=== PATIENT | female | born 1990 | race Hispanic/Latino ===

== ENCOUNTER 2017-05-29 17:01 | Emergency (ER) | payer MEDICAID ==
[2017-05-29 17:24] VITALS: BP 109/58; PULSE 48; RESP 20; TEMP 98.6; O2SAT 99
--- NOTE | 2017-05-29 19:12 | ED PDOC ---
HPI: Abdomen Time Seen by Provider: 05/29/17 18:03 Chief Complaint (Nursing): Abdominal Pain Chief Complaint (Provider): Lower back pain, lower abdominal pain History Per: Patient History/Exam Limitations: no limitations Onset/Duration Of Symptoms: Days Outside of [place] travel?: No Current Symptoms Are (Timing): Still Present Location Of Pain/Discomfort: RLQ, LLQ, Suprapubic Associated Symptoms: Back Pain Additional Complaint(s): The patient is a 26yo female, past medical history of rheumatoid arthritis, lupus, presents to the ED for evaluation of lower abdominal pain, radiating to her lower back and is associated with pressure like cramping pain. Patient reports her LMP ended 8 days ago and was a normal cycle; she states the cramping pain from her period has not ended yet. Patient also reports some nausea, light headedness, generalized fatigue, and constipation which is chronics. Patient denies any vaginal bleeding, dysuria, hematuria, frequency, black or bloody stools. Patient also denies any other medical complaints. Past Medical History Reviewed: Historical Data, Nursing Documentation, Vital Signs Vital Signs: Last Vital Signs Temp 98.6 F 05/29/17 17:21 Pulse 48 L 05/29/17 17:21 Resp 20 05/29/17 17:21 BP 109/58 L 05/29/17 17:21 Pulse Ox 99 05/29/17 19:30 - Medical History PMH: No Chronic Diseases - Surgical History Surgical History: No Surg Hx - Family History Family History: States: No Known Family Hx - Social History Current smoker - smoking cessation education provided: Yes Alcohol: None Drugs: Denies - Home Medications Home Medications: Ambulatory Orders Medication Instructions Recorded Naproxen [Naprosyn] 1 tab PO BID PRN #60 tab 05/29/17 - Allergies Allergies/Adverse Reactions: Allergies Allergy/AdvReac Type Severity Reaction Status Date / Time No Known Allergies Allergy Verified 03/02/16 18:02 Review of Systems ROS Statement: Except As Marked, All Systems Reviewed And Found Negative Gastrointestinal: Positive for: Abdominal Pain, Constipation. Negative for: Melena, Hematochezia Genitourinary Female: Negative for: Dysuria, Frequency, Hematuria, Vaginal Bleeding Physical Exam - Reviewed Nursing Documentation Reviewed: Yes Vital Signs Reviewed: Yes - Physical Exam Appears: Positive for: Well, Non-toxic, No Acute Distress Head Exam: Positive for: ATRAUMATIC, NORMAL INSPECTION, NORMOCEPHALIC Skin: Positive for: Normal Color, Warm, DRY Eye Exam: Positive for: Normal appearance Neck: Positive for: Normal, Supple Cardiovascular/Chest: Positive for: Regular Rate, Rhythm Respiratory: Positive for: Normal Breath Sounds. Negative for: Respiratory Distress Gastrointestinal/Abdominal: Positive for: Normal Exam, Soft. Negative for: Tenderness Back: Positive for: Normal Inspection. Negative for: L CVA Tenderness, R CVA Tenderness Extremity: Positive for: Normal ROM. Negative for: Deformity, Swelling Neurologic/Psych: Positive for: Alert, Oriented. Negative for: Motor/Sensory Deficits - Laboratory Results Result Diagrams: 05/29/17 19:11 05/29/17 19:11 - ECG O2 Sat by Pulse Oximetry: 99 (RA) Pulse Ox Interpretation: Normal Medical Decision Making Medical Decision Making: Time: 1809 Impression: Pelvic pain Differential: UTI, fibroids, ovarian cyst, , constipation Plan: -- Labs -- Toradol 15mg IV -- Zofran 4mg IVP -- US Transvaginal Reassess EXAM: US Pelvis, Transvaginal EXAM DATE/TIME: 05/29/2017 6:59 PM CLINICAL HISTORY: 26 years old, female; Pain; Pelvic pain; Additional info: Pelvic pain R/O ov cyst/torsion TECHNIQUE: Real-time transvaginal pelvic ultrasound (complete) with image documentation. Transvaginal imaging was used for better evaluation of the endometrium and adnexa. COMPARISON: Prior pelvic CT of 01/29/2016 FINDINGS: Uterus: Measures 9.5 x 4.1 x 5.3 cm. Endometrial stripe does not appear abnormally thickened, measuring 8.5 mm. No fibroids seen. Cervix appears closed. Right ovary: Measures 4.0 x 2.1 x 3.5 cm, and contains a 2.3 x 2.0 cm cystic lesion, which appears grossly simple in nature. No followup is warranted based on the imaging findings , unless otherwise clinically indicated. Flow seen in the right ovary on Doppler imaging, with no evidence of torsion. Left ovary: Within normal limits in appearance. Measures 2.5 x 2.5 x 1.5 cm. Flow seen in the left ovary on color and Doppler imaging, with no evidence of torsion. Cul-de-sac: No free fluid. IMPRESSION: No evidence of ovarian torsion or other significant acute abnormality. Small 2.3 cm cystic lesion in the right ovary. See above for remaining findings. Thank you for allowing us to participate in the care of your patient Dictated and Authenticated by: Ching Helton MD 05/29/2017 9:25 PM Eastern Time ([place] & [place]) Scribe Attestation: Documented by Vera Valiente acting as a scribe for Irais Vasquez MD. Provider Attestation: All medical record entries made by the Scribe were at my direction and personally dictated by me. I have reviewed the chart and agree that the record accurately reflects my personal performance of the history, physical exam, medical decision making, and the department course for this patient. I have also personally directed, reviewed, and agree with the discharge instructions and disposition. Disposition - Clinical Impression Clinical Impression: Pelvic pain Counseled Patient/Family Regarding: Studies Performed, Diagnosis, Need For Followup - Disposition Referrals: [facility] [Outside] () Disposition: Routine/Home Disposition Time: 21:00 Condition: STABLE Prescriptions: Naproxen [Naprosyn] 1 tab PO BID PRN #60 tab PRN Reason: Pain Forms: [employer] ([place])
[2017-05-29 19:16] LABS: BASO # 0.1 K/uL (0.0-0.2); BASO % 1.1 % (0.0-2.0); EOS # 0.2 K/uL (0.0-0.7); EOS % 2.2 % (0.0-4.0); HEMATOCRIT 41.5 % (34.0-47.0); LYMPH # 2.8 K/uL (1.0-4.3); LYMPH % 38.3 % (20.0-40.0); MEAN CELL VOLUME 80.7 fl (81.0-99.0); MEAN CORPUSCULAR HGB CONC 32.2 g/dL (33.0-37.0); MEAN PLATELET VOLUME 8.1 fl (7.2-11.7); MONO # 0.6 K/uL (0.0-0.8); MONO % 8.9 % (0.0-10.0); NEUT # 3.6 K/uL (1.8-7.0); NEUT % 49.5 % (50.0-75.0); RED CELL DISTRIBUTION WIDTH 14.1 % (11.5-14.5); WHITE BLOOD COUNT 7.2 K/uL (4.8-10.8)
[2017-05-29 19:44] LABS: ALB/GLOB RATIO 1.5 (1.0-2.1); ALKALINE PHOSPHATASE 44 U/L (38-126); ALT/SGPT 35 U/L (9-52); AST/SGOT 22 U/L (14-36); BILIRUBIN,TOTAL 0.9 mg/dl (0.2-1.3); BLOOD UREA NITROGEN 15 mg/dl (7-17); CARBON DIOXIDE 24 mmol/L (22-30); CHLORIDE 104 mmol/L (98-107); GFR AFRICAN-AMERICAN > 60; GLUCOSE,RANDOM 89 mg/dL (65-105); POTASSIUM 4.3 MMOL/L (3.6-5.0); SODIUM 138 mmol/l (132-148); TOTAL PROTEIN 7.9 G/DL (6.3-8.2)
--- NOTE | 2017-05-29 21:25 | US ---
EXAM: US Pelvis, Transvaginal EXAM DATE/TIME: 05/29/2017 6:59 PM CLINICAL HISTORY: 26 years old, female; Pain; Pelvic pain; Additional info: Pelvic pain R/O ov cyst/torsion TECHNIQUE: Real-time transvaginal pelvic ultrasound (complete) with image documentation. Transvaginal imaging was used for better evaluation of the endometrium and adnexa. COMPARISON: Prior pelvic CT of 01/29/2016 FINDINGS: Uterus: Measures 9.5 x 4.1 x 5.3 cm. Endometrial stripe does not appear abnormally thickened, measuring 8.5 mm. No fibroids seen. Cervix appears closed. Right ovary: Measures 4.0 x 2.1 x 3.5 cm, and contains a 2.3 x 2.0 cm cystic lesion, which appears grossly simple in nature. No followup is warranted based on the imaging findings, unless otherwise clinically indicated. Flow seen in the right ovary on Doppler imaging, with no evidence of torsion. Left ovary: Within normal limits in appearance. Measures 2.5 x 2.5 x 1.5 cm. Flow seen in the left ovary on color and Doppler imaging, with no evidence of torsion. Cul-de-sac: No free fluid. IMPRESSION: No evidence of ovarian torsion or other significant acute abnormality. Small 2.3 cm cystic lesion in the right ovary. See above for remaining findings.
== END 2017-05-29 22:22 | disposition home or self-care (01) ==
LOC: H.ER 17:01
DX: N83.291 Other ovarian cyst, right side (principal)
CPT/HCPCS: 76830; 80053; 81025; 85025; 96374; 96375; 99282; J1885; J2405

== ENCOUNTER 2017-09-11 11:10 | Emergency (ER) | payer MEDICAID ==
[2017-09-11 11:26] VITALS: RESP 18; TEMP 98
--- NOTE | 2017-09-11 13:14 | ED PDOC ---
HPI: Chest Pain Time Seen by Provider: 09/11/17 11:58 Chief Complaint (Nursing): Anxiety Chief Complaint (Provider): Chest pain & anxiety History Per: Patient History/Exam Limitations: no limitations Onset/Duration Of Symptoms: Days (x1), Intermittent Episodes Current Symptoms Are (Timing): Still Present Context: Other (stress) Pain Scale Rating Of: 5 Associated Symptoms: Other (anxiety, shortness of breath). denies: Nausea Additional Complaint(s): Kassie Schmitt is a 27 year old female, with a past medical history of lupus , who present to the emergency department complaining of anxiety, chest pain, and shortness of breath onset x1 day. Patient also reports loss of appetite and not sleeping well. Patient reports similar symptoms when she is anxious. Patient report feeling stressed after she was accused to DYFS. She denies any vomit, diarrhea, nausea, suicidal or homicidal ideation. No further medical complaints. PMD: None provided. Past Medical History Reviewed: Historical Data, Nursing Documentation, Vital Signs Vital Signs: Last Vital Signs Temp 98 F 09/11/17 17:02 Pulse 76 09/11/17 17:02 Resp 18 09/11/17 11:23 BP 120/70 09/11/17 17:02 Pulse Ox 98 09/11/17 17:02 - Medical History PMH: No Chronic Diseases - Surgical History Surgical History: No Surg Hx - Family History Family History: States: Unknown Family Hx - Social History Current smoker - smoking cessation education provided: No Alcohol: None Drugs: Cannabis - Home Medications Home Medications: Ambulatory Orders Medication Instructions Recorded Naproxen [Naprosyn] 1 tab PO BID PRN #60 tab 05/29/17 - Allergies Allergies/Adverse Reactions: Allergies Allergy/AdvReac Type Severity Reaction Status Date / Time No Known Allergies Allergy Verified 09/11/17 11:23 CHRISTIAN Risk Score for UA/NSTEMI - CHRISTIAN Risk Score Age > 64: NO 3 or more CAD Risk Factors: NO Known CAD (Stenosis greater than 50%): NO Aspirin use in past 7 days: NO Severe Angina: NO EKG ST changes greater than 0.5mm: NO Positive Cardiac Marker: NO CHRISTIAN Score: 0 Risk %: 5% Wells Criteria for PE - Wells Criteria for Pulmonary Embolism Clinical Signs and Symptoms of DVT: No P.E is #1 Diagnosis, or Equally Likely: No Heart Rate >100: No Immobilization at least 3 days;Surgery previous 4 weeks: No Previous, objectively diagnosed PE or DVT: No Hemoptysis: No Malignancy w/treatment within 6 months, or palliative: No Total Score: 0 Review of Systems ROS Statement: Except As Marked, All Systems Reviewed And Found Negative Cardiovascular: Positive for: Chest Pain Respiratory: Positive for: Shortness of Breath Gastrointestinal: Negative for: Nausea, Vomiting, Diarrhea Psych: Positive for: Anxiety. Negative for: Suicidal ideation (or homicidal ) Physical Exam - Reviewed Nursing Documentation Reviewed: Yes Vital Signs Reviewed: Yes - Physical Exam Appears: Positive for: Non-toxic Head Exam: Positive for: ATRAUMATIC, NORMAL INSPECTION Skin: Positive for: Normal Color, Warm, Dry Eye Exam: Positive for: Normal appearance, EOMI Neck: Positive for: Painless ROM, Supple Cardiovascular/Chest: Positive for: Regular Rate, Rhythm. Negative for: Murmur Respiratory: Positive for: Normal Breath Sounds. Negative for: Respiratory Distress Gastrointestinal/Abdominal: Positive for: Soft. Negative for: Tenderness, Guarding, Rebound Back: Negative for: L CVA Tenderness, R CVA Tenderness Extremity: Positive for: Normal ROM. Negative for: Deformity, Swelling Neurologic/Psych: Positive for: Alert, Oriented - Laboratory Results Result Diagrams: 09/11/17 12:53 09/11/17 12:53 - ECG O2 Sat by Pulse Oximetry: 99 (RA) Pulse Ox Interpretation: Normal Medical Decision Making Medical Decision Making: Initial impression: Chest pain, anxiety. Differential includes: anxiety, panic attack. Rule out: ACS Initial Plan: --EKG --Basic Metabolic Panel --Drug screen, urine --Troponin I --Crisis evaluation --Urine --CBC w/ differential --reevaluation 1650 Cleared by crisis for discharge. Scribe Attestation: Documented by José Miguel Kearney, acting as a scribe for Luciano Juan MD Provider Scribe Attestation: All medical record entries made by the Scribe were at my direction and personally dictated by me. I have reviewed the chart and agree that the record accurately reflects my personal performance of the history, physical exam, medical decision making, and the department course for this patient. I have also personally directed, reviewed, and agree with the discharge instructions and disposition. Disposition - Clinical Impression Clinical Impression: Anxiety, Chest pain - Patient ED Disposition Is Patient to be Admitted: No Doctor Will See Patient In The: Office Counseled Patient/Family Regarding: Studies Performed, Diagnosis - Disposition Referrals: [facility] [Outside] Disposition Time: 17:00 Condition: GOOD Additional Instructions: Follow up with your PCP in 2-3 days. Instructions: Chest Pain (ED), Anxiety (ED)
[2017-09-11 13:23] LABS: BASO % 0.9 % (0.0-2.0); EOS # 0.1 K/uL (0.0-0.7); EOS % 1.6 % (0.0-4.0); HEMATOCRIT 39.3 % (34.0-47.0); LYMPH # 1.7 K/uL (1.0-4.3); LYMPH % 33.9 % (20.0-40.0); MEAN CELL VOLUME 81.6 fl (81.0-99.0); MEAN CORPUSCULAR HEMOGLOBIN 26.7 pg (27.0-31.0); MEAN CORPUSCULAR HGB CONC 32.8 g/dL (33.0-37.0); MEAN PLATELET VOLUME 8.5 fl (7.2-11.7); MONO # 0.5 K/uL (0.0-0.8); MONO % 11.1 % (0.0-10.0); NEUT # 2.6 K/uL (1.8-7.0); NEUT % 52.5 % (50.0-75.0); NRBC % 0.3 % (0.0-0.0); RED CELL DISTRIBUTION WIDTH 13.4 % (11.5-14.5); WHITE BLOOD COUNT 4.9 K/uL (4.8-10.8)
[2017-09-11 13:26] LABS: BLOOD UREA NITROGEN 11 mg/dl (7-17); CALCIUM 9.6 mg/dL (8.4-10.2); CARBON DIOXIDE 27 mmol/L (22-30); CHLORIDE 106 mmol/L (98-107); GFR AFRICAN-AMERICAN > 60; GLUCOSE,RANDOM 82 mg/dL (65-105); POTASSIUM 4.4 MMOL/L (3.6-5.0); SODIUM 141 mmol/l (132-148)
[2017-09-11 17:03] VITALS: BP 120/70; PULSE 76
--- NOTE | 2017-09-12 00:12 | CARD ---
APPROVED REPORT EKG Measurement Heart [id number] <Conclusion> Sinus bradycardia with sinus arrhythmia Otherwise normal ECG
[2017-09-14 10:14] VITALS: O2SAT 99
== END 2017-09-11 17:05 | disposition home or self-care (01) ==
LOC: H.ER 11:10
DX: F41.9 Anxiety disorder, unspecified (principal)

== ENCOUNTER 2017-10-28 10:26 | Emergency (ER) | payer MEDICAID ==
[2017-10-28 10:59] VITALS: BMI 30.7
[2017-10-28 13:15] LABS: SQUAMOUS EPITHIAL 2 /hpf (0-5); URINE BACTERIA RARE (<OCC); URINE BILIRUBIN NEGATIVE (NEGATIVE); URINE BLOOD NEGATIVE (NEGATIVE); URINE CLARITY SLIGHTY-CLOUDY (Clear); URINE COLOR YELLOW (YELLOW); URINE GLUCOSE (UA) NEG (Normal); URINE LEUKOCYTE ESTERASE SMALL Leu/uL (Negative); URINE NITRATE NEGATIVE (NEGATIVE); URINE PROTEIN NEGATIVE (NEGATIVE)
--- NOTE | 2017-10-28 13:33 | ED PDOC ---
HPI: Female Pain Time Seen by Provider: 10/28/17 10:43 Chief Complaint (Nursing): Female Genitourinary Chief Complaint (Provider): URI/Vaginitis History Per: Patient Additional Complaint(s): 27 yo female, PMH of RA and Lupus, presents to ED with complaint sof cough and congestion x 3 days. Additionally, for 2 weeks pt notes foul smelling vaginal discharge. Pt reports no concern for STD's. Past Medical History Reviewed: Nursing Documentation, Vital Signs - Medical History PMH: No Chronic Diseases Denies: Diabetes, Hepatitis, HIV, HTN, Seizures, Sexually Transmitted Disease - Surgical History Surgical History: No Surg Hx - Family History Family History: States: Unknown Family Hx - Living Arrangements Living Arrangements: With Family - Social History Current smoker - smoking cessation education provided: No Alcohol: Social Drugs: Denies - Home Medications Home Medications: Ambulatory Orders Medication Instructions Recorded Naproxen [Naprosyn] 1 tab PO BID PRN #60 tab 05/29/17 Guaifenesin/Pseudoephedrne HCl 1 tab PO DAILY PRN #30 ter 10/28/17 [Mucinex D 600 mg-60 mg] Metronidazole [Metrogel-Vaginal] 1 ea VG HS #5 gel 10/28/17 Promethazine HCl/Codeine 5 ml PO HS #80 ml 10/28/17 [Prometh-Codein 6.25-10 mg/5 ml] - Allergies Allergies/Adverse Reactions: Allergies Allergy/AdvReac Type Severity Reaction Status Date / Time No Known Allergies Allergy Verified 09/11/17 11:23 Review of Systems ROS Statement: Except As Marked, All Systems Reviewed And Found Negative ENT: Positive for: Nose Congestion Respiratory: Positive for: Cough Genitourinary Female: Positive for: Vaginal Discharge Physical Exam - Reviewed Nursing Documentation Reviewed: Yes Vital Signs Reviewed: Yes - Physical Exam Appears: Positive for: Well, Non-toxic, No Acute Distress Head Exam: Positive for: ATRAUMATIC, NORMAL INSPECTION, NORMOCEPHALIC Skin: Positive for: Normal Color, Warm, DRY Eye Exam: Positive for: EOMI, Normal appearance, PERRL ENT: Positive for: Normal ENT Inspection Neck: Positive for: Normal, Painless ROM Cardiovascular/Chest: Positive for: Regular Rate, Rhythm Respiratory: Positive for: CNT, Normal Breath Sounds Gastrointestinal/Abdominal: Positive for: Normal Exam, Bowel Sounds, Soft Pelvic Exam: Positive for: External Exam Normal, Discharge (mild white vaginal discharge). Negative for: Active Bleeding, Cervicitis Back: Positive for: Normal Inspection Extremity: Positive for: Normal ROM Neurologic/Psych: Positive for: Alert, Oriented Medical Decision Making Medical Decision Making: UA reuslted and discussed with Pt. GC/C obtained and sent via Urine specimen Pt given Dx of BV and RX for Metrogel Disposition - Clinical Impression Clinical Impression: Vaginitis, Upper respiratory infection - Patient ED Disposition Is Patient to be Admitted: No - Disposition Disposition: Routine/Home Disposition Time: 13:48 Condition: STABLE Prescriptions: Guaifenesin/Pseudoephedrne HCl [Mucinex D 600 mg-60 mg] 1 tab PO DAILY PRN #30 ter PRN Reason: congestion Metronidazole [Metrogel-Vaginal] 1 ea VG HS #5 gel Promethazine HCl/Codeine [Prometh-Codein 6.25-10 mg/5 ml] 5 ml PO HS #80 ml Instructions: Upper Respiratory Infection (ED), Bacterial Vaginosis (ED) Forms: [email or web address] (Nepalese)
[2017-10-28 14:14] VITALS: BP 123/67; PULSE 76; RESP 18; TEMP 98.5; O2SAT 100
== END 2017-10-28 13:50 | disposition home or self-care (01) ==
LOC: H.ER 10:26
DX: J06.9 Acute upper respiratory infection, unspecified (principal); N76.0 Acute vaginitis; M32.9 Systemic lupus erythematosus, unspecified

== ENCOUNTER 2017-11-28 09:01 | Emergency (ER) | payer MEDICAID ==
[2017-11-28 09:16] VITALS: BMI 34.3
--- NOTE | 2017-11-28 09:41 | ED PDOC ---
HPI: Female Pain Time Seen by Provider: 11/28/17 09:14 Chief Complaint (Nursing): Female Genitourinary History Per: Patient Onset/Duration Of Symptoms: Days (2) Current Symptoms Are (Timing): Still Present Severity: Mild Quality Of Discomfort: Other (itching) Associated Symptoms: denies: Fever, Nausea, Vomiting, Diarrhea, Urinary Symptoms Additional Complaint(s): Vaginal itching assoc with yellowish vaginal discharge x 2 days. Denies abd pain. No fever. Recently tx'ed for bacterial vaginosis Past Medical History Vital Signs: Last Vital Signs Temp 98.7 F 11/28/17 09:18 Pulse 54 L 11/28/17 09:18 Resp 19 11/28/17 09:18 BP 110/58 L 11/28/17 09:18 Pulse Ox 100 11/28/17 09:18 - Medical History PMH: No Chronic Diseases Denies: Diabetes, Hepatitis, HIV, HTN, Seizures, Sexually Transmitted Disease - Family History Family History: States: Unknown Family Hx - Home Medications Home Medications: Ambulatory Orders Medication Instructions Recorded Naproxen [Naprosyn] 1 tab PO BID PRN #60 tab 05/29/17 Guaifenesin/Pseudoephedrne HCl 1 tab PO DAILY PRN #30 ter 10/28/17 [Mucinex D 600 mg-60 mg] Metronidazole [Metrogel-Vaginal] 1 ea VG HS #5 gel 10/28/17 Promethazine HCl/Codeine 5 ml PO HS #80 ml 10/28/17 [Prometh-Codein 6.25-10 mg/5 ml] Metronidazole [Metrogel-Vaginal] 1 ea VG DAILY #7 gel 11/28/17 - Allergies Allergies/Adverse Reactions: Allergies Allergy/AdvReac Type Severity Reaction Status Date / Time No Known Allergies Allergy Verified 09/11/17 11:23 Review of Systems Constitutional: Negative for: Fever Gastrointestinal: Negative for: Abdominal Pain Genitourinary Female: Positive for: Vaginal Discharge Physical Exam - Physical Exam Appears: Positive for: Non-toxic, No Acute Distress Skin: Positive for: Normal Color, Warm, DRY Gastrointestinal/Abdominal: Positive for: Bowel Sounds, Soft, Tenderness Pelvic Exam: Positive for: External Exam Normal, Speculum Exam Normal, No Cerv. Motion Tender, No Masses. Negative for: Active Bleeding, Discharge, Tender W/ Cervical Motion, Tender Adnexa - ECG O2 Sat by Pulse Oximetry: 100 Medical Decision Making Medical Decision Making: [employer] Ana Laura Fisher RN Disposition - Clinical Impression Clinical Impression: Bacterial vaginosis - Patient ED Disposition Is Patient to be Admitted: No Counseled Patient/Family Regarding: Diagnosis, Need For Followup, Rx Given - [facility]position [facility] Disposition: Routine/Home Disposition Time: 09:42 Condition: FAIR Prescriptions: Metronidazole [Metrogel-Vaginal] 1 ea VG DAILY #7 gel Instructions: Bacterial Vaginosis
[2017-11-28 09:53] VITALS: BP 120/78; PULSE 80; RESP 18; TEMP 97.6; O2SAT 98
== END 2017-11-28 09:53 | disposition home or self-care (01) ==
LOC: H.ER 09:01
DX: N76.0 Acute vaginitis (principal); B96.89 Other specified bacterial agents as the cause of diseases classified elsewhere